=== PATIENT | male | born 1980 | race Two or more races ===

== ENCOUNTER 2025-03-23 23:13 | Emergency (ER) | payer MEDICARE, OTHER ==
[~2025-03-23] VITALS: Ht 177.8 cm; Wt 90.9 kg
[2025-03-23] MEDS: ACETAMINOPHEN 325 MG TAB PO ONE (23:30)
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
[2025-03-24] LABS: Basophils # (auto) 0 10 ^3/uL (0-0.2); Basophils % (auto) 0.4 % (0.0-2.0); Eosinophils # (auto) 0.2 10 ^3/uL (0-0.8); Eosinophils % (auto) 1.6 % (0.0-7.0); Hematocrit 44.2 % (41.0-53.0); Hemoglobin 15.2 g/dL (13.5-17.5); Lymphocytes # (auto) 3.7 10 ^3/uL (0.4-5.4); Lymphocytes % (auto) 35.8 % (10.0-50.0); Mean Corpuscular Hemoglobin 28.6 pg (28.0-32.0); Mean Corpuscular Hgb Conc. 34.4 g/dL (32.0-36.0); Monocytes # (auto) 0.7 10 ^3/uL (0-1.3); Monocytes % (auto) 7.2 % (0.0-12.0); Neutrophils # (auto) 5.8 10 ^3/uL (1.6-8.6); Platelet Count (auto) 296 10^3/uL (140-450); Red Blood Cells 5.33 10^6/uL (4.5-5.90); Red Cell Distribution Width 15.1 % (11.8-14.3); White Blood Cell 10.5 10^3/uL (4.4-10.8)
[2025-03-24 00:13] LABS: Chloride 107 mmol/L (98-107); Sodium 140 mmol/L (136-145)
[2025-03-24 00:14] LABS: Anion Gap 5 (5-15); Carbon Dioxide 28 mmol/L (20-31)
[2025-03-24 00:15] LABS: Calcium 9.8 mg/dL (8.7-10.4)
[2025-03-24 00:19] LABS: BUN/Creatinine Ratio 16.1 (10.0-20.0); Blood Urea Nitrogen 9 mg/dL (9-23); Glucose 102 mg/dL (74-106)
[2025-03-24 00:20] LABS: Blood Alcohol 4.2 mg/dL (<10)
[2025-03-24 00:22] LABS: Urine Bacteria None Seen /hpf (None Seen)
[2025-03-24 00:27] LABS: Acetaminophen < 2.0 UG/ML (10.0-20.0); Salicylate < 3.0 mg/dL (-30)
--- NOTE | 2025-03-24 00:39 | DVH ---
CLINICAL HISTORY: lower back pain TECHNIQUE: 3 views of the lumbar spine were obtained. WID: COMPARISON: None FINDINGS: There are 5 [id number] lumbar type vertebral bodies. The pedicles are intact. Sacroiliac joints are maintained. Vertebral body heights are maintained. Alignment is preserved. Disc spaces preserved . No acute fracture. Overlying soft tissues are intact. There are cholecystectomy clips. The visu alized bowel gas is nonobstructed. IMPRESSION: No acute fracture or traumatic malalignment.
[2025-03-24 01:07] LABS: Urine Blood Negative /uL (Negative); Urine Clarity Clear (Clear); Urine Color Light-Yellow (Yellow); Urine Mucus FEW (None Seen); Urine Protein, UAD Negative (Negative); Urine Specific Gravity 1.017 (1.001-1.035); Urine Squamous Epithelial Cell FEW /hpf (<5); Urine Urobilinogen Normal (Negative); Urine WBC < 1 /HPF (0-3)
[2025-03-24 01:45] LABS: Amphetamine Screen, Urine Neg (NEGATIVE); Barbiturate Scree,Urine Neg (NEGATIVE); Benzodiazephine Screen, Urine Neg (NEGATIVE); Cannabinoid Screen, Urine Pos (NEGATIVE); Cocaine Screen, Urine Neg (NEGATIVE); Opiate Scree,Urine Neg (NEGATIVE); Phencyclidine Screen, Urine Neg (NEGATIVE)
[2025-03-24 04:40] VITALS: PULSE 85; RESP 18; O2SAT 98
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
[2025-03-24 19:39] VITALS: PULSE 84; RESP 25; O2SAT 96
[2025-03-24] MEDS: QUEtiapine FUMARATE 100 MG TAB PO SCH (21:26)
[2025-03-24] MEDS: HYDROcodone-ACET 5/325MG TAB PO ONE (21:26)
[2025-03-25 13:22] VITALS: BP 130/92; PULSE 87; RESP 16; TEMP 98; O2SAT 95
== END 2025-03-25 14:12 | disposition short-term general hospital (02) ==
LOC: ER 23:13 → EEVIPCON 23:13 → EDBD 23:13 → ER 03-25 13:00
DX: R45.851 Suicidal ideations (principal); F31.9 Bipolar disorder, unspecified; F20.9 Schizophrenia, unspecified; E78.5 Hyperlipidemia, unspecified; G71.00 Muscular dystrophy, unspecified; M54.50 Low back pain, unspecified; R73.03 Prediabetes; Z79.899 Other long term (current) drug therapy; Z91.51 Personal history of suicidal behavior
CPT/HCPCS: 36415; 72110; 80048; 80307; 80320; 80329; 81001; 85025